=== PATIENT | male | born 1970 | race Caucasian/White ===

== ENCOUNTER 2017-12-24 14:28 | Observation (INO) ==
[2017-12-24] MEDS ORDERED: Nitroglycerin 1 INCH/GM PACKET TP ONE (14:31)
[2017-12-24] MEDS ORDERED: Aspirin 81 MG TAB.CHEW PO ONE (14:31)
--- NOTE | 2017-12-24 14:38 | Emergency Department Note ---
Disposition Clinical Impression: Chest pain Disposition: Transfer Short-Term Hosp Referrals: Lazara Villela MD [Primary Care Provider] - Forms: ED Satisfaction Letter Time of Disposition: 15:25 ( WILL ADMIT) Chest Pain HPI - General Chief Complaint: ED Chest Pain Stated Complaint: Chest pain Time Seen by Provider: 12/24/17 14:36 Source: patient Mode of arrival: ambulatory Limitations: no limitations Vital Signs Reviewed: Yes Nursing Notes Reviewed: Yes - History of Present Illness HPI Narrative: 47-year-old male presents from triage with complaints of substernal chest pain. Patient states that he works late shift at work and as she awakened this morning, around 2:30 V he went to sit on the couch and began having pain in his chest. Patient complains of the pain as being a tightness or pressure. He reports that the pain is about a 2 out of the 10 scale presently. Patient other than a leaky valve has no cardiac issues. He denies getting chest pain with exercising or walking long distances. Patient does have a 1 pack-a-day smoking history. Pt complaint: chest pain Onset (ago): Just [employer] Onset: during rest Pain Location: substernal, left chest Severity: mild Severity scale (1-10): 2 Quality: tightness Pain Radiation: none Improves with: nothing Associated symptoms: Denies: nausea, vomiting, diaphoresis, dyspnea, sense of impending doom, syncope, palpitations, cough, leg swelling - Related Data Home Medications Medication Instructions Recorded Confirmed Multivitamin-Min/Iron/FA/Vit K 1 tab PO DAILY 08/24/16 12/24/17 [Multi-Day Plus Minerals Tablet] metFORMIN [Glucophage] 500 mg PO DAILY 08/24/16 12/24/17 Aspirin/Acetaminophen/Caffeine 2 tab PO DAILY 09/10/17 12/24/17 [Excedrin Extra Strength Caplet] BuPROPion XL (24 HR) [Wellbutrin 150 mg PO DAILY 09/10/17 12/24/17 XL] Vitamin B Complex [B Complex] 1 tab PO DAILY 09/10/17 12/24/17 lamoTRIgine [Lamictal] 100 mg PO QAM 09/10/17 12/24/17 lamoTRIgine [Lamictal] 150 mg PO HS 09/10/17 12/24/17 clonazePAM [Klonopin] 0.5 mg PO AD PRN 12/24/17 12/24/17 Allergies Allergy/AdvReac Type Severity Reaction Status Date / Time No Known Allergies Allergy Verified 12/24/17 14:29 Constitutional: Denies: fever, chills, weakness, weight change Eyes: Denies: eye pain, eye discharge, vision change ENT ED: Denies: ear pain, throat pain, dental pain, hearing loss, epistaxis, congestion, dysphagia Cardiovascular: Denies: chest pain, palpitations, dyspnea on exertion, edema, syncope Respiratory: Denies: cough, dyspnea, wheezes, hemoptysis, stridor Gastrointestinal: Denies: abdominal pain, nausea, vomiting, diarrhea, constipation, hematemesis, melena, hematochezia Genitourinary: Denies: urgency, dysuria, frequency, hematuria Musculoskeletal: Denies: back pain, neck pain, arthralgia, myalgia Integumentary: Denies: rash, abrasion, lesions Neurological: Denies: headache, weakness, numbness, paresthesias, confusion, abnormal gait, vertigo Psychiatric: Denies: anxiety, depression, suicidal thoughts, homicidal thoughts , auditory hallucinations, visual hallucinations Endocrine: Denies: fatigue Hematological/Lymphatic: Denies: easy bleeding, easy bruising Allergic/Immunologic: Denies: facial swelling, urticaria Chest Pain PMH - Past Medical History Medical history: Reports: diabetes, hyperlipidemia Psychiatric history: Reports: anxiety, bipolar, depression - Social History Smoking Status: Current every day smoker Alcohol use: Reports: none Drug use: Reports: none Physical Exam - General Limitations: no limitations General appearance: alert, in no apparent distress - Head Head exam: atraumatic, normocephalic, normal inspection - Eye Eye exam: Present: normal appearance, PERRL, EOMI - Expanded Eye Exam Pupils: Left: reactive - ENT ENT exam: normal exam, normal oropharynx, mucous membranes moist - Expanded ENT Exam External ear exam: Present: normal external inspection Mouth exam: Present: normal external inspection Teeth exam: Present: normal inspection Throat exam: Present: normal inspection - Neck Neck exam: Present: normal inspection, full ROM, trachea midline - Chest Chest inspection: Present: normal inspection, symmetric chest wall rise - Respiratory Respiratory exam: Present: normal lung sounds bilaterally - Cardiovascular Cardiovascular exam: Present: regular rate, normal rhythm, normal heart sounds - Abdominal Exam Abdominal exam: Present: soft, Non-Tender. Absent: tenderness, distention, guarding, rebound, rigidity - Extremities Exam Extremities exam: Present: normal inspection, full ROM. Absent: tenderness, pedal edema - Expanded Upper Extremity Exam Shoulder exam: Present: normal inspection, full ROM Arm exam: Present: normal inspection, full ROM Elbow exam: Present: normal inspection, full ROM Forearm/Wrist exam: Present: normal inspection, full ROM Hand exam: Present: normal inspection, full ROM Vascular exam: Normal: capillary refill, radial pulse - Expanded Lower Extremity Exam Hip/Pelvis exam: Present: normal inspection, full ROM Upper leg exam: Present: normal inspection, full ROM Knee exam: Present: normal inspection, full ROM Lower leg exam: Present: normal inspection, full ROM Ankle exam: Present: normal inspection, full ROM Foot/toe exam: Present: normal inspection, full ROM Neurovascular/Tendon exam: Absent: motor deficit, sensory deficit, tendon deficit - Back Exam Back exam: Present: normal inspection, full ROM. Absent: tenderness - Neurological Exam Neurological exam: Present: alert, oriented X3 - Expanded Neurological Exam Patient oriented to: Present: person, place, time Coma Scale Eye Opening: Spontaneous Coma Scale Motor Response: Obeys Commands Coma Scale Verbal Response: Oriented Coma Scale Total: 15 - Psychiatric Psychiatric exam: Present: normal affect, normal mood - Skin Skin exam: Present: warm, dry, intact, normal color Course Vital Signs Temperature 98.4 F 12/24/17 14:31 Pulse Rate 74 12/24/17 14:31 Respiratory Rate 16 12/24/17 14:31 Blood Pressure 131/71 12/24/17 14:31 O2 Sat by Pulse Oximetry 96 12/24/17 14:31 Temperature 98.4 F 12/24/17 14:31 Pulse Rate 68 12/24/17 15:12 Respiratory Rate 16 12/24/17 15:12 Blood Pressure 124/66 12/24/17 15:12 O2 Sat by Pulse Oximetry 97 12/24/17 15:12 Oxygen Delivery Oxygen Delivery Room Air Chest Pain - MDM Narrative Medical decision making narrative: Labs including CBC electrolytes troponin and EKG were obtained. - Differential Diagnosis Likely: unstable angina pectoris, atypical chest pain, chest pain - Medical Records Medical records reviewed: Yes I reviewed the patient's medical records. - Lab Data Lab results reviewed: Yes I reviewed the patient's lab results. Result diagrams: 12/24/17 14:45 12/24/17 14:45 Lab Results 12/24/17 12/24/17 12/24/17 Range/Units 14:38 14:45 14:45 WBC (4.3-11.1) K/mcL RBC (4.19-5.50) M/mcL Hgb (12.9-16.9) g/dL Hct (37.5-50.1) % MCV (83.0-100.0) fL MCH (28.0-33.3) pg MCHC (31.6-35.5) g/dL RDW (11.5-14.5) % Plt Count (140-400) K/mcL MPV (9.4-12.4) fL Immature Gran % (0-4) % Seg Neutrophils % % Lymphocytes % % Monocytes % % Eosinophils % % Basophils % % Neutrophils # (1.6-8.9) K/mcL Lymphocytes # (0.6-4.6) K/mcL Monocytes # (0.0-1.3) K/mcL Eosinophils # (0.0-0.6) K/mcL Basophils # (0.0-0.2) K/mcL PT 11.8 (9.4-12.1) Seconds INR 1.1 APTT 38.9 H (26.0-36.0) Seconds Sodium (136-145) mEq/L Potassium (3.5-5.1) mEq/L Chloride (98-107) mEq/L Carbon Dioxide (23-29) mEq/L BUN (6-20) mg/dL Creatinine (0.70-1.30) mg/dL Est GFR ( Amer) (> 60) Est GFR (Non-Af Amer) (> 60) BUN/Creatinine Ratio (6-26) Glucose (70-105) mg/dL POC Glucose 96 (70-99) mg/dL Calculated Osmolality (280-300) Calcium (8.6-10.3) mg/dL Troponin I (< 0.04) ng/mL B-Natriuretic Peptide 14 (Less than 100) pg/mL 12/24/17 12/24/17 Range/Units 14:45 14:45 WBC 11.0 (4.3-11.1) K/mcL RBC 5.28 (4.19-5.50) M/mcL Hgb 16.8 (12.9-16.9) g/dL Hct 46.4 (37.5-50.1) % MCV 87.9 (83.0-100.0) fL MCH 31.8 (28.0-33.3) pg MCHC 36.2 H (31.6-35.5) g/dL RDW 12.8 (11.5-14.5) % Plt Count 176 (140-400) K/mcL MPV 9.6 (9.4-12.4) fL Immature Gran % 0.7 (0-4) % Seg Neutrophils % 58.0 % Lymphocytes % 25.7 % Monocytes % 10.7 % Eosinophils % 4.1 % Basophils % 0.8 % Neutrophils # 6.4 (1.6-8.9) K/mcL Lymphocytes # 2.8 (0.6-4.6) K/mcL Monocytes # 1.2 (0.0-1.3) K/mcL Eosinophils # 0.5 (0.0-0.6) K/mcL Basophils # 0.1 (0.0-0.2) K/mcL PT (9.4-12.1) Seconds INR APTT (26.0-36.0) Seconds Sodium 138 (136-145) mEq/L Potassium 4.1 (3.5-5.1) mEq/L Chloride 104 (98-107) mEq/L Carbon Dioxide 27 (23-29) mEq/L BUN 16 (6-20) mg/dL Creatinine 0.95 (0.70-1.30) mg/dL Est GFR ( Amer) > 60 (> 60) Est GFR (Non-Af Amer) > 60 (> 60) BUN/Creatinine Ratio 17 (6-26) Glucose 87 (70-105) mg/dL POC Glucose (70-99) mg/dL Calculated Osmolality 287 (280-300) Calcium 9.9 (8.6-10.3) mg/dL Troponin I < 0.03 (< 0.04) ng/mL B-Natriuretic Peptide (Less than 100) pg/mL - Radiology Data Chest x-ray shows no acute process per radiology reading - EKG Data EKG attestation: Yes I reviewed and interpreted this EKG. EKG results narrative: EKG is normal sinus rhythm EKG shows normal: sinus rhythm Rate: normal Rhythm: NSR [place]/QRS: normal
[2017-12-24 14:55] LABS: Basophils # 0.1 K/mcL (0.0-0.2); Basophils % 0.8 %; Eosinophils # 0.5 K/mcL (0.0-0.6); Eosinophils % 4.1 %; Hematocrit 46.4 % (37.5-50.1); Hemoglobin 16.8 g/dL (12.9-16.9); Immature Granulocytes % 0.7 % (0-4); Lymphocytes # 2.8 K/mcL (0.6-4.6); Lymphocytes % 25.7 %; Mean Corpuscular HGB Conc 36.2 g/dL (31.6-35.5); Mean Corpuscular Hemoglobin 31.8 pg (28.0-33.3); Mean Corpuscular Volume 87.9 fL (83.0-100.0); Mean Platelet Volume 9.6 fL (9.4-12.4); Monocytes # 1.2 K/mcL (0.0-1.3); Monocytes % 10.7 %; Neutrophils # 6.4 K/mcL (1.6-8.9); Platelet Count 176 K/mcL (140-400); Red Blood Count 5.28 M/mcL (4.19-5.50); Red Cell Distribution Width 12.8 % (11.5-14.5)
[2017-12-24 15:02] LABS: INR 1.1; Prothrombin Time 11.8 Seconds (9.4-12.1)
[2017-12-24 15:05] LABS: Activated Partial Thrombo Time 38.9 Seconds (26.0-36.0)
[2017-12-24 15:09] LABS: BUN/Creatinine Ratio 17 (6-26); Blood Urea Nitrogen 16 mg/dL (6-20); Calcium 9.9 mg/dL (8.6-10.3); Carbon Dioxide 27 mEq/L (23-29); Chloride 104 mEq/L (98-107); Glucose 87 mg/dL (70-105); Osmolality,Calculated 287 (280-300); Potassium 4.1 mEq/L (3.5-5.1); Sodium 138 mEq/L (136-145); eGFR For African Americans > 60 (> 60); eGFR For Non-African Americans > 60 (> 60)
[2017-12-24 15:21] LABS: Troponin I < 0.03 ng/mL (< 0.04)
[2017-12-24] MEDS ORDERED: clonazePAM 0.5 MG TABLET PO PRN (15:58)
[2017-12-24] MEDS ORDERED: lamoTRIgine 100 MG TABLET PO SCH (21:00)
[2017-12-25] MEDS ORDERED: lamoTRIgine 100 MG TABLET PO SCH (09:00)
[2017-12-25] MEDS ORDERED: BuPROPion XL (24 HR) 150 MG TABLET PO SCH (09:00)
[2017-12-25] MEDS ORDERED: *HR* Metformin 500 MG TABLET PO SCH (09:00)
[2017-12-25] MEDS ORDERED: Multivit/Ca/Min/Fe/FA 1 TAB TABLET PO SCH (09:00)
[2017-12-25] MEDS ORDERED: Vitamin B Complex/Vit C/Vit E 1 EACH TABLET PO SCH (09:00)
[2017-12-25] MEDS ORDERED: Acetaminophen/Aspirin/Caffeine TABLET PO SCH (09:00)
[2017-12-25 11:38] VITALS: BP 145/66
--- NOTE | 2017-12-25 11:57 | Internal Med History&Physical ---
Date of Encounter: 12/25/17 Time of Encounter: 11:30 Assessment and Plan (1) Chest pain Current visit: Yes Status: Acute Strongly doubt myocardial ischemic origin. History and physical consistent with musk skeletal origin. He feels stable for discharge home. Qualifiers: Chest pain type: unspecified Qualified Code(s): R07.9 - Chest pain, unspecified Internal Medicine - H&P: HPI Chief complaint: Chest and left shoulder discomfort Admitted From: Emergency Dept Plans for Post Hospital Care: Home History of present illness: Mr. Ervin is a 47 year old male who came to emergency room after he awakened approximately 11 AM the day of admission with discomfort in his left shoulder and left upper chest area. He waited a few hours without complete resolution of the discomfort. He came to emergency room and was evaluated and admitted to [facility] for ongoing care needs. He denies similar discomfort or angina or anginal equivalents when he does exertional activities at work including caring 35 pounds a short distance. He reports similar discomfort approximately 2 days ago when he reached out to pet his dog and had to catch himself from falling using his left arm. He denies history of hypertension VA heart failure angina DVT or pulmonary embolus. He reports an echocardiogram in the past has showed aortic insufficiency. He denies having a heart catheter or stress test done. He feels back to his baseline now and wishes to be discharged home. Past Med Surg Social Fam HX - Past Medical History Medical history: diabetes, hyperlipidemia Additional medical history: diverticulosis. obesity. leaky valve Psychiatric history: anxiety, bipolar, depression - Past Surgical History Additional surgical history: herniated disk - Social History Smoking Status: Current every day smoker Smokeless Tobacco Status: Yes Alcohol use: none Drug use: none - Family History Mother History Unknown: Yes Internal Medicine - H&P: Meds Multivitamin-Min/Iron/FA/Vit K [Multi-Day Plus Minerals Tablet] 1 tab PO DAILY 08/24/16 [History] metFORMIN [Glucophage] 500 mg PO DAILY 08/24/16 [History] Aspirin/Acetaminophen/Caffeine [Excedrin Extra Strength Caplet] 2 tab PO DAILY 09/10/17 [History] BuPROPion XL (24 HR) [Wellbutrin XL] 150 mg PO DAILY 09/10/17 [History] Vitamin B Complex [B Complex] 1 tab PO DAILY 09/10/17 [History] lamoTRIgine [Lamictal] 100 mg PO QAM 09/10/17 [History] lamoTRIgine [Lamictal] 150 mg PO HS 09/10/17 [History] clonazePAM [Klonopin] 0.5 mg PO AD PRN 12/24/17 [History] 3 Allergy/AdvReac Type Severity Reaction Status Date / Time No Known Allergies Allergy Verified 12/24/17 14:29 All Systems PM: A 10-system review of systems was performed and is negative for pertinent findings except as documented above in the HPI. Review of systems: Gen.: He states his weight is stable the past few months Cardiovascular: As per history of present illness Respiratory: He has smoked since age 19 up to one and one half packs per day. He denies chronic lung disease and does not use home oxygen. GI: He denies disorders of his liver gallbladder or exocrine pancreas : He denies hematuria dysuria or kidney stones Neurologic: He denies large distribution strokes or seizures. Endocrine: He was diagnosed with DM 2 approximately 2013. Hemoglobin A1c was 4.9% on 08/01/2017. He denies thyroid disease or hyperlipidemia Hematology/oncology: He denies blood disorders cancers or anemia Psychiatric: He has anxiety and mood disorder. [place] skeletal: He denies arthritis gout or other bone joint or muscle disorders. - Constitutional Vitals: Temp Pulse Resp BP Pulse Ox 98 F 72 14 145/66 98 12/25/17 11:35 12/25/17 11:35 12/25/17 11:35 12/25/17 11:35 12/25/17 11:35 Exam: Gen.: He is a well-developed well-nourished male resting comfortably on the side of bed who appears in no acute distress HEENT: Head is atraumatic and normocephalic. Eyes: EOMI. There is no scleral icterus. Mouth: Mucosa is moist. Neck: Supple and nontender. There is no thyromegaly or adenopathy noted. Heart: Regular without murmurs gallops or ectopics Chest: He has no significant tenderness of costosternal joints. He has tenderness in his left upper chest and left deltoid area stating "that is the pain" when deep palpation is done. He has tenderness over the left biceps tendon. Abdomen: Soft and nontender. No masses or guarding are noted. Extremities: There is no cyanosis of his fingernails. There is no edema of his lower legs. Neurologic: Mental status: He is talkative and a good historian. Cranial nerves : Smile is symmetric. Forehead wrinkles bilaterally. Tongue protrudes midline. EOMI. Motor: There is no pronator drift. Cerebellar: Finger to nose is intact bilaterally. Skin: Warm and dry Internal Med - H&P Results - Labs CBC & Chem 7: 12/24/17 14:45 12/24/17 14:45 - VTE Documentation of Mechanical Device: Graduated compression elastic hosiery
--- NOTE | 2017-12-25 12:05 | Discharge Summary ---
Date of Encounter: 12/25/17 Time of Encounter: 11:30 - Discharge Diagnosis (1) Chest pain Priority: Primary Status: Resolved Qualifiers: Chest pain type: unspecified Qualified Code(s): R07.9 - Chest pain, unspecified Hospital course: Mr. Ervin is a 47 year old male who came to emergency room after he awakened approximately 11 AM the day of admission with discomfort in his left shoulder and left upper chest area. He waited a few hours without complete resolution of the discomfort. He came to emergency room and was evaluated and admitted to [facility] for ongoing care needs. Initial orders were written by the emergency room physician. I saw him on December 25 and performed the history and physical and discharge. When I saw him I did not feel the pain was of myocardial ischemic origin. It was reproduced with palpation of the left shoulder area and biceps tendon. I felt he was stable for discharge home. He will use OTC Aleve for 2-3 days and see if pain improves. He will follow with his PCP Dr. Villela within 1 week. - Time Spent with Patient Total time spent providing and/or coordinating discharge services: - Discharge Medications Home Medications: Multivitamin-Min/Iron/FA/Vit K [Multi-Day Plus Minerals Tablet] 1 tab PO DAILY 08/24/16 [History] metFORMIN [Glucophage] 500 mg PO DAILY 08/24/16 [History] Aspirin/Acetaminophen/Caffeine [Excedrin Extra Strength Caplet] 2 tab PO DAILY 09/10/17 [History] BuPROPion XL (24 HR) [Wellbutrin Xl] 150 mg PO DAILY 09/10/17 [History] Vitamin B Complex [B Complex] 1 tab PO DAILY 09/10/17 [History] lamoTRIgine [Lamictal] 100 mg PO QAM 09/10/17 [History] lamoTRIgine [Lamictal] 150 mg PO HS 09/10/17 [History] clonazePAM [Klonopin] 0.5 mg PO AD PRN 12/24/17 [History] Allergies/Adverse Reactions: 3 Allergy/AdvReac Type Severity Reaction Status Date / Time No Known Allergies Allergy Verified 12/24/17 14:29 Date of admission: 12/24/17 18:36 Primary care physician: Lazara Villela MD - Constitutional Vitals: Temp Pulse Resp BP Pulse Ox 98 F 72 14 145/66 98 06/21/18 11:35 12/25/17 11:35 12/25/17 11:35 12/25/17 11:35 12/25/17 11:35 - Patient Status Disposition: Home, Self-Care Overall status at discharge: patient is progressing back to baseline - Discharge Instructions Follow Up With: Lazara Villela MD [Primary Care Provider] - 1 week - Diet and Activity Activity: resume usual activities as tolerated Diet: advance to your usual diet - VTE Documentation of Mechanical Device: Graduated compression elastic hosiery
--- NOTE | 2017-12-25 17:52 | Electrocardiograph Report ---
[address] [address] Test Date: 2017-12-24 Pat Name: Skip Ervin Department: [id number] Room: [facility] Gender: M [employer] Forms: [id number] : 1970 Requested By: Arin Patel Order Number: [id number] Reading MD: Colton Zhang Measurements Intervals [place] Rate: 76 P: 44 ME: 170 QRS: 60 QRSD: 102 T: 47 QT: 358 QTc: 389 Interpretive Statements SINUS RHYTHM Electronically Signed On 12-25-2017 17:50:53 EDT by Colton Zhang
== END 2017-12-25 13:35 | disposition home or self-care (01) ==
LOC: EMEROOPIK 14:28 → INPPIK 14:28
PROVIDERS: ADMIT Internal Medicine; ATTEND Internal Medicine